=== PATIENT | female | born 1970 | race Caucasian/White ===

== ENCOUNTER 2016-11-05 22:41 | Emergency (ER) | payer MEDICAID ==
[~2016-11-05] VITALS: Ht 177.8 cm; Wt 81.6 kg
[2016-11-05 23:04] VITALS: BP 129/89
[2016-11-05 23:19] LABS: Basophils # (auto) 0 uL; Basophils % (auto) 0.5 % (0.0-2.0); Eosinophils # (auto) 0.1 uL; Eosinophils % (auto) 1.6 % (0.0-7.0); Hematocrit 41.4 % (36.0-46.0); Lymphocytes # (auto) 1.5 uL; Lymphocytes % (auto) 18.2 % (10.0-50.0); Mean Corpuscular Hgb Conc. 33.9 g/dL (32.0-36.0); Mean Corpuscular Volume 88.4 fL (80.0-100.0); Mean Platelet Volume 8.6 fL (7.4-10.4); Monocytes # (auto) 0.7 uL; Monocytes % (auto) 8.2 % (0.0-12.0); Neutrophils # (auto) 5.8 uL; Neutrophils % (auto) 71.5 % (37.0-80.0); Platelet Count (auto) 303 10^3/uL (140-450); Red Cell Distribution Width 12.6 % (11.6-16.0); White Blood Cell 8.1 10^3/uL (4.4-10.8)
[2016-11-05 23:40] LABS: Albumin 3.8 g/dL (3.4-5.0); Anion Gap 12 (5-15); Aspartate Aminotransferase 20 U/L (15-37); BUN/Creatinine Ratio 25.3; Blood Urea Nitrogen 19 mg/dL (7-18); Calcium 8.9 mg/dL (8.5-10.1); Carbon Dioxide 23 mmol/L (21-32); Chloride 109 mmol/L (98-107); GFR African American 106 mL/min; GFR Non-African American 88 mL/min; Glucose 107 mg/dL (74-106); Potassium 3.9 mmol/L (3.5-5.1); Sodium 144 mmol/L (136-145)
[2016-11-05 23:44] LABS: Alkaline Phosphatase 74 U/L (45-117); Bilirubin, Total 0.3 mg/dL (0.2-1.0); Total Protein 7.9 g/dL (6.4-8.2)
== END 2016-11-06 | disposition left against medical advice (07) ==
LOC: ER 22:41 → EDBD 22:41 → ER 11-06
DX: F41.9 Anxiety disorder, unspecified (principal); Z53.21 Procedure and treatment not carried out due to patient leaving prior to being seen by health care provider
CPT/HCPCS: 36415; 80053; 84484; 85025; 93005